=== PATIENT | female | born 1975 | race Hispanic/Latino ===

== ENCOUNTER 2023-09-20 08:28 | Emergency (ER) | payer OTHER ==
[~2023-09-20] VITALS: Ht 160 cm; Wt 65.8 kg
[2023-09-20 08:36] VITALS: BP 141/66
[2023-09-20] MEDS ORDERED: KETOROLAC TROMETHAMINE 30 MG/ML SDV IV ONE (08:45)
[2023-09-20 08:46] VITALS: BP 137/65
[2023-09-20] MEDS ORDERED: TENORMIN25 MG PO (08:49)
[2023-09-20 09:00] VITALS: BP 124/77
[2023-09-20 09:16] VITALS: BP 140/79
[2023-09-20 09:22] LABS: BASO% 0.2 % (0-3); EOS% 2.2 % (0-8); HEMATOCRIT 37.9 % (37.0-47.0); IMMATURE GRANULOCYTES 0.2 % (0.0-5.0); MEAN CELL VOLUME 83.5 fL CALC (80.0-100.0); MEAN CORPUSCULAR HGB 26.4 pG CALC (26.0-32.0); MEAN CORPUSCULAR HGB CONC 31.7 g/dL CAL (32.0-36.0); MONO% 5.7 % (2-13); NEUT# 3.9 thou/uL (2.00-7.15); NEUT% 65.7 % (42-76); RED BLOOD COUNT 4.54 mill/uL (4.20-5.60); RED CELL DISTRI WIDTH 14.5 % (11.5-15.5)
[2023-09-20 09:30] VITALS: BP 137/77
[2023-09-20 09:34] LABS: ALBUMIN 4.5 g/dL (3.2-5.0); BILIRUBIN, TOTAL 0.4 mg/dL (0.02-1.3); CREATININE 0.7 mg/dL (0.5-1.0); POTASSIUM 4.5 mmol/l (3.5-5.1); TOTAL PROTEIN 8.4 g/dL (6.3-8.2)
[2023-09-20] MEDS ORDERED: MOTRIN400 MG/TAB PO (10:05)
[2023-09-20] MEDS ORDERED: FLEXERIL5 M1 PO (10:05)
[2023-09-20 10:21] VITALS: BP 140/79
== END 2023-09-20 10:24 | disposition home or self-care (01) | DRG 552 ==
LOC: ED 08:28
PROVIDERS: Family Medicine
DX: M54.2 Cervicalgia (principal); M54.6 Pain in thoracic spine; V49.40XA Driver injured in collision with unspecified motor vehicles in traffic accident, initial encounter